=== PATIENT | male | born 1980 | race Caucasian/White ===

== ENCOUNTER 2021-10-20 12:44 | Emergency (ER) | payer OTHER, SELFPAY ==
[2021-10-20 12:56] VITALS: BP 130/83; PULSE 107; RESP 16; TEMP 36.8; O2SAT 98; BMI 23.7
--- NOTE | 2021-10-20 13:14 | XRR_ITS ---
PROCEDURE INFORMATION: Exam: XR Chest Exam date and time: 10/20/2021 12:19 PM Age: 41 years old Clinical indication: Pain; Chest pressure; Additional info: Chest pain TECHNIQUE: Imaging protocol: XR of the chest. Views: 1 view. COMPARISON: No relevant prior studies available. FINDINGS: Lungs: Unremarkable. No consolidation. Pleural spaces: Unremarkable. No pleural effusion. No pneumothorax. Heart/Mediastinum: Unremarkable. No cardiomegaly. Bones/joints: Unremarkable. XR/XR chest 1V portable [id number] IMPRESSION: No acute findings.
--- NOTE | 2021-10-20 13:15 | W.ED.CHESTPA ---
HPI - Chest Pain General: Chief Complaint: Chest Pain Stated Complaint: Chest Pains HBP Time Seen by Provider: 10/20/21 13:05 Source: patient and family Mode of arrival: ambulatory Limitations: no limitations History of Present Illness: This patient presented to our emergency department by private vehicle. He states he is here because of chest pain concerns. He states he was in this emergency department last evening accompanying his stepson and developed some chest pain which seem to be central in location and achy in nature sometimes pressure and squeezing. He states that he thought it would go away as a did not seek care at that time. He states the pain has persisted and is still present. He states it feels squeezing like and does radiate into both arms and sometimes into the center of his back. He denies it to be ripping or tearing in nature. He is not a tobacco user. He denies any cough fever etc. He is right-handed. He states that he occasionally has soreness from job-related activities but it never has lasted this long. He did have 2 bouts of emesis this morning upon awakening. He does not have any history of gastric ulcer disease or reflux disease. He does not drink alcohol. He has no other significant risk factors. He denies any history of thromboembolic events. He is not had COVID-19 nor is he immunized. No one else is ill in his home currently. MD complaint: chest pain Timing of current episode: constant Pain location: substernal Pain radiation: right arm, left arm and back Quality: tightness and dull Relieving factors: nothing Exacerbating factors: nothing Associated symptoms: Reports nausea and vomiting; Deny abdominal pain, dyspnea, fever(s), palpitations or syncope Risk Factors: Coronary artery disease risk factors: none Thoracic aortic dissection risk factors: none Review of Systems Const: Denies: fever(s), chills, body aches or change in appetite Eyes: Denies: change in vision ENMT: Denies: throat pain, odynophagia, change in hearing or nasal congestion Card: Denies: palpitations, syncope or pre-syncope Resp: Denies: dyspnea, productive cough or non-productive cough GI: Reports: nausea and vomiting; Denies: abdominal pain, hematemesis, coffee ground emesis, change in stool character, hematochezia or melena : Denies: flank pain, difficulty urinating, dysuria or urinary urgency Musc: Denies: neck pain, joint pain, joint swelling or joint warmth Skin/Breast: Denies: rash, pruritus or erythema Neuro: Denies: headache(s), numbness in extremities, weakness in extremities or sensory changes Psych: Denies: anxiety Endo: Denies: polyuria or polydipsia Chay/Lymph: Denies: easy bruising or easy bleeding All/Imm: Denies: urticaria PFSH ED PFSH: Social History Smoking and tobacco status: never smoked Alcohol intake: current Alcohol intake frequency: few times a month Physical Exam Narrative: EXAM NARRATIVE: Patient is a normal body habitus. He is alert in no acute distress. He makes good eye contact and speech is goal-directed. Const: COMMON NORMALS: no acute distress, average body habitus and patient oriented x3 GENERAL APPEARANCE: cooperative and comfortable HENMT: COMMON NORMALS: normocephalic, external ears normal, Normal nasal mucous membranes and turbinates present, moist oral mucous membranes and oropharynx normal HEAD & SCALP: normocephalic NOSE: Normal nasal mucous membranes and turbinates present EXTERNAL EAR: Yes external ears normal Eye: COMMON NORMALS: Equal, round and reactive pupils present, EOMs intact bilaterally and no scleral icterus PUPIL: Yes Equal, round and reactive pupils present Neck/C-Spine: COMMON NORMALS: full ROM, no lymphadenopathy, no JVD, Thyroid normal and No carotid bruits THYROID: Thyroid normal Chest: COMMONS NORMALS: normal inspection of the chest CHEST: Yes other OTHER: Chest exam is remarkable for tenderness to palpation over the left upper lateral chest. Movement of either left or right arms does not change his symptoms. Rotation of his trunk does not change his symptoms. There is no ecchymosis, skin rashes etc. No crepitance. Resp: COMMON NORMALS: normal respiratory effort, No retractions, No use of accessory muscles and clear to auscultation bilaterally AUSCULTATION: clear to auscultation bilaterally Cardio: COMMON NORMALS: no JVD, regular rate, No gallops present (Cardio) and No murmurs present (Cardio) RATE: regular rate and tachycardic GI: COMMON NORMALS: Normal to inspection, nondistended, normoactive bowel sounds present, Soft to palpation, non-tender and no masses PALPATION: Yes Soft to palpation : COMMON NORMALS: Yes no CVA tenderness BLADDER/KIDNEY EXAM: Yes no CVA tenderness Back/Pelvis: COMMON NORMALS: no CVA tenderness, thoracic and lumbar spine normal to inspection, no thoracic nor lumbar tenderness, thoraco-lumbar ROM normal and straight leg raise negative bilaterally Extremity: COMMON NORMALS: normal to inspection, full ROM, capillary refill normal, no joint enlargement, no clubbing, cyanosis or edema, no calf tenderness and no pedal edema Neuro: COMMON NORMALS: patient oriented x3, moves all extremities, no focal motor deficits and no sensory deficits noted Psych: COMMON NORMALS: mental status grossly normal, Normal thought process present and cooperative THOUGHT PROCESS: Normal thought process present Skin: COMMON NORMALS: no rashes or lesions noted and turgor normal GENERAL SKIN EXAM: no rashes or lesions noted and turgor normal Course Vital Signs: Vital signs: Vital Signs Temperature 98.3 F 10/20/21 12:56 Pulse Rate 97 10/20/21 15:22 Respiratory Rate 16 10/20/21 15:22 Blood Pressure 136/102 10/20/21 15:22 Pulse Oximetry 99 10/20/21 15:22 MDM - Chest Pain Medical Decision Making Patient with history of several hours of chest pain since last evening which on clinical examination suggest reproducibility was evaluated in the emergency department. His initial EKG was reassuring. Serial biomarkers were also reassuring. D-dimer was negative making low risk of thromboembolic event. He did have resting tachycardia but this trended down during his emergency department visit. When further investigated regarding his episode of vomiting this morning apparently he had episodes of pain when he was taking breaths which caused him to hyperventilate a bit which led to his vomiting episodes. He did not display any findings in the emergency department suggest a ongoing abdominal issue clinically. He had a soft nontender abdomen with reassuring laboratories etc. At this juncture he does not appear to have an ongoing emergency medical condition. Does have mild diastolic hypertension in the emergency department but this does not require any intervention at this time. I have cautioned both he and his spouse to monitor his blood pressure at home and record those numbers and should they remain elevated over the 140/90 range he should follow-up with his primary manager care management. We have also discussed avoiding salt etc. They both were comfortable with the plan of care and acknowledged our discussion. Stable for discharge with good return precautions discussed. Differential Diagnosis Unlikely acute massive pulmonary embolism or acute myocardial infarction Medical Records I reviewed the patient's medical records. Lab Data I reviewed the patient's lab results. : 10/20/21 13:12 10/20/21 13:12 Radiology Impressions Chest X-Ray 10/20/21 13:14 IMPRESSION: No acute findings. Laboratory Results WBC 11.3 10^3/uL (4.0-10.0) H 10/20/21 13:12 RBC 5.48 10^6/uL (4.1-5.3) H 10/20/21 13:12 Hgb 16.1 g/dL (11.7-16.6) 10/20/21 13:12 Hct 47.7 % (42.0-52.0) 10/20/21 13:12 MCV 87.0 fl (80-94) 10/20/21 13:12 MCH 29.4 pg (28.0-34.0) 10/20/21 13:12 MCHC 33.8 g/dL (30.0-36.0) 10/20/21 13:12 RDW 12.2 % (12.1-15.1) 10/20/21 13:12 Plt Count 211 10^3/cmm (130-400) 10/20/21 13:12 MPV 11.5 fL (7.4-10.4) H 10/20/21 13:12 Neut % (Auto) 89.6 % 10/20/21 13:12 Lymph % (Auto) 4.0 % 10/20/21 13:12 Mcclain % (Auto) 4.7 % 10/20/21 13:12 Eos % (Auto) 1.0 % 10/20/21 13:12 Baso % (Auto) 0.4 % 10/20/21 13:12 Neut # (Auto) 10.17 10^3/uL (1.8-7.7) H 10/20/21 13:12 Lymph # (Auto) 0.5 10^3/uL (0.8-4.8) L 10/20/21 13:12 Mcclain # (Auto) 0.5 10^3/uL (0.2-0.9) 10/20/21 13:12 Eos # (Auto) 0.1 10^3/uL (0.0-0.8) 10/20/21 13:12 Baso # (Auto) 0.0 10^3/uL (0.0-0.1) 10/20/21 13:12 Nucleated RBC % (auto) 0 % 10/20/21 13:12 Nucleated RBCs # 0.0 /100WBC 10/20/21 13:12 D-Dimer <= 0.27 ug/mIFEU (0-0.59) 10/20/21 13:12 Sodium 135 mmol/L (136-145) L 10/20/21 13:12 Potassium 4.5 mmol/L (3.5-5.1) 10/20/21 13:12 Chloride 104 mmol/L (98-107) 10/20/21 13:12 Carbon Dioxide 18 mmol/L (22-29) L 10/20/21 13:12 Anion Gap 17.5 (5-19) 10/20/21 13:12 BUN 15 mg/dL (6-20) 10/20/21 13:12 Creatinine 0.7 mg/dL (0.7-1.2) 10/20/21 13:12 GFR Calculation 123.7 mL/min (90-130) 10/20/21 13:12 Glucose 97 mg/dL (65-115) 10/20/21 13:12 Calculated Osmolality 281 mOsm/kg (285-295) L 10/20/21 13:12 Calcium 9.1 mg/dL (8.5-10.5) 10/20/21 13:12 Total Bilirubin 1.0 mg/dL (0.15-1.2) 10/20/21 13:12 AST 20 U/L (0-40) 10/20/21 13:12 ALT 19 U/L (0-41) 10/20/21 13:12 Alkaline Phosphatase 75 IU/L (40-130) 10/20/21 13:12 Troponin T Baseline 6 ng/L (0-15) 10/20/21 13:12 Troponin T 120 Minute 6.00 ng/L (0-15) 10/20/21 14:43 Total Protein 7.2 g/dL (6.6-8.7) 10/20/21 13:12 Albumin 4.6 g/dL (3.5-5.2) 10/20/21 13:12 Globulin 2.6 g/dL (1.3-4.6) 10/20/21 13:12 EKG Data EKG 1: EKG interpretation time: 13:05 Interpretation: Review of his resting EKG reveals sinus tachycardia 120 bpm. Intervals normal axis. He has nonspecific ST-T wave inversion in limb lead III. Otherwise no notable ST-T wave changes. No prior tracings available. Discharge Plan Discharge Patient Disposition: Home Clinical Impression: Chest pain, Chest pain, musculoskeletal Condition: Stable Prescriptions: No Action No Known Home Medications 0RF Discharge Orders: Discharge ED (Routine); Ordered 10/20/21 Ordered By: Rocky Mixon [facility] [[facility] Care [facility]] - Discharge Diet: Low Salt Discharge Activity: Resume usual activity and Increase activity as tolerated Patient Instructions: Opioid Safety Activity Restrictions/Additional Instructions: Monitor your blood pressure after you have been sitting for approximately 5 minutes once or twice daily and record those numbers for the next 2 weeks. If your blood pressure remains continuously greater than 140/90 range follow-up with your primary manager care management for further discussion and evaluation and potential treatment. Should you develop any new persistent or worsening symptoms as we discussed return to this or the nearest emergency department immediately. Coding Level of Care Code ED [employer] Lay Up Worker for Darrell Vidal Exam Comprehensive
[2021-10-20] MEDS: aspirin 81 mg Chew Tablet 324 MG PO (13:24)
--- NOTE | 2021-10-20 13:24 | PC.NURSE ---
PT PLACED ON CONTINUOUS SPO2, NIBP, AND CM.
[2021-10-20 13:31] VITALS: BP 141/101; PULSE 104; RESP 20; O2SAT 99
[2021-10-20 13:38] LABS: Basophils % 0.4 %; Eosinophils # 0.1 10^3/uL (0.0-0.8); Hematocrit 47.7 % (42.0-52.0); Hemoglobin 16.1 g/dL (11.7-16.6); Lymphocytes # 0.5 10^3/uL (0.8-4.8); Mean Corpuscular HGB Conc 33.8 g/dL (30.0-36.0); Mean Corpuscular Hemoglobin 29.4 pg (28.0-34.0); Mean Platelet Volume 11.5 fL (7.4-10.4); Monocytes # 0.5 10^3/uL (0.2-0.9); Monocytes % 4.7 %; Neutrophils # 10.17 10^3/uL (1.8-7.7); Neutrophils % 89.6 %; Nucleated Red Blood Cells % 0 %; Platelet Count 211 10^3/cmm (130-400); Red Blood Count 5.48 10^6/uL (4.1-5.3); Red Cell Distribution Width 12.2 % (12.1-15.1); White Blood Count 11.3 10^3/uL (4.0-10.0)
[2021-10-20 13:45] VITALS: BP 141/101; PULSE 99; RESP 18; O2SAT 97
[2021-10-20 13:54] LABS: D Dimer <= 0.27 ug/mIFEU (0-0.59)
[2021-10-20 14:23] LABS: Troponin(5th) Baseline 6 ng/L (0-15)
[2021-10-20 14:33] VITALS: BP 140/101; PULSE 104; RESP 16; O2SAT 96
[2021-10-20 14:52] LABS: Alanine Aminotransferase 19 U/L (0-41); Albumin Level 4.6 g/dL (3.5-5.2); Alkaline Phosphatase 75 IU/L (40-130); Aspartate Amino Transferase 20 U/L (0-40); Blood Urea Nitrogen 15 mg/dL (6-20); Calcium 9.1 mg/dL (8.5-10.5); Carbon Dioxide 18 mmol/L (22-29); Chloride 104 mmol/L (98-107); Creatinine Clr Calc Pharmacy 152.2726; Globulin 2.6 g/dL (1.3-4.6); Glomerular Filtration Rate 123.7 mL/min (90-130); Glucose 97 mg/dL (65-115); Osmolality Calculated 281 mOsm/kg (285-295); Sodium 135 mmol/L (136-145); Total Protein 7.2 g/dL (6.6-8.7)
[2021-10-20 14:55] LABS: Anion Gap 17.5 (5-19); Potassium 4.5 mmol/L (3.5-5.1)
[2021-10-20] MEDS: sodium chloride 0.9% 1,000 ML 999 ML IV (15:20)
[2021-10-20 15:22] VITALS: BP 136/102; PULSE 97; RESP 16; O2SAT 99
[2021-10-20 15:58] LABS: Troponin 5 2HR Delta 0 ABS# (0-10)
[2021-10-20 16:10] VITALS: BP 136/102; PULSE 98; RESP 19; O2SAT 98
--- NOTE | 2021-10-20 19:14 | ECG_ITS ---
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 Measurements Intervals [place] Rate: 120 P: 55 NH: 131 QRS: 46 QRSD: 85 T: 9 QT: 284 QTc: 402 Interpretive Statements SINUS TACHYCARDIA NONSPECIFIC T-WAVE ABNORMALITY ABNORMAL RHYTHM ECG No previous ECG available for comparison Electronically Signed On 10-21-2021 17:43:45 CDT by Augusta Sal M.D. [id number]
== END 2021-10-20 16:11 | disposition home or self-care (01) ==
PROVIDERS: Emergency Provider Emergency Medicine
DX: R07.9 Chest pain, unspecified (principal)
CPT/HCPCS: 71045; 80053; 84484; 85025; 85378; 93005; 96360; 99284; J7030

== ENCOUNTER 2022-08-27 17:00 | Outpatient (CLI) | payer OTHER, SELFPAY | END 2022-08-27 17:01 | disposition home or self-care (01) | LOC: SLEEP 08-29 17:02 | PROVIDERS: Visit Provider Family Medicine | DX: G47.10 Hypersomnia, unspecified (principal); R53.83 Other fatigue; R06.83 Snoring; G47.33 Obstructive sleep apnea (adult) (pediatric) | CPT/HCPCS: G0399 ==

== ENCOUNTER 2022-12-11 18:49 | Emergency (ER) | payer SELFPAY ==
--- NOTE | 2022-12-11 18:57 | XRR_ITS ---
PROCEDURE INFORMATION: Exam: XR Left Ankle Exam date and time: 12/11/2022 7:05 PM Age: 42 years old Clinical indication: Pain; Ankle; Left TECHNIQUE: Imaging protocol: Radiologic exam of the left ankle. Views: 3 or more views. COMPARISON: No relevant prior studies available. FINDINGS: Bones/joints: Punctate calcified heel spur. Soft tissues: Normal. XR/XR ankle LT min 3V* [id number] IMPRESSION: 1. No acute findings. 2. Punctate calcified heel spur.
[2022-12-11 19:20] VITALS: PULSE 76; RESP 14; TEMP 36.4; O2SAT 98
[2022-12-11 19:23] VITALS: BP 136/95
--- NOTE | 2022-12-11 19:36 | ED_ITS ---
HPI - Extremity Problem General: Chief complaint: Extremity Problem,Nontraumatic Stated complaint: Left Ankle Pain Time Seen by Provider: 12/11/22 19:32 History of Present Illness: 42-year-old male patient comes in today with left ankle pain and discomfort. Patient reports of been going on for about 2 weeks. Patient did feel a pop when he rolled over off the couch about 2 weeks ago and since then he has had increased pain and some mild swelling to the ankle. No redness or fever is noted. Patient appears nontoxic. Patient reports no prior injury to her ankle. Associated symptoms: Deny rash Review of Systems General: Reports: 10 or more systems reviewed and unremarkable except in HPI and below ENMT: Denies: throat pain Resp: Denies: dyspnea GI: Denies: abdominal pain Musc: Reports: joint pain Skin/Breast: Denies: rash PFSH ED PFSH: Social History Smoking and tobacco status: never smoked Alcohol intake: current Alcohol intake frequency: few times a month Substance/Drug Use: never Physical Exam Const: COMMON NORMALS: alert HENMT: COMMON NORMALS: normocephalic HEAD & SCALP: normocephalic Neck/C-Spine: COMMON NORMALS: full ROM Resp: COMMON NORMALS: normal respiratory effort and clear to auscultation bilaterally AUSCULTATION: clear to auscultation bilaterally Cardio: COMMON NORMALS: regular rate RATE: regular rate Back/Pelvis: COMMON NORMALS: thoracic and lumbar spine normal to inspection Extremity: LEFT LOWER EXTREMITY: Yes ankle joint (Posterior ankle tenderness with mild swelling.) Left ankle: Yes inspection, Yes palpation and Yes ROM Neuro: SENSORIUM/ORIENTATION: Yes alert Skin: COMMON NORMALS: turgor normal GENERAL SKIN EXAM: turgor normal Course Vital Signs: Vital signs: Vital Signs Temperature 97.6 F 12/11/22 19:20 Pulse Rate 76 12/11/22 19:20 Respiratory Rate 14 12/11/22 19:20 Blood Pressure 136/95 12/11/22 19:23 Pulse Oximetry 98 12/11/22 19:20 Oxygen Delivery Me thod Room Air 12/11/22 19:20 MDM - Extremity (Nontraumatic) Medical Decision Making Patient comes in today with persistent pain and discomfort to the left ankle. On exam the ankle has some posterior tenderness and mild swelling. Pulses and sensation are intact. Differential diagnosis includes but not limited to fracture, sprain, tendinitis, bursitis. X-ray noted some heel spurring but otherwise unremarkable x-ray. Exam noted no obvious abnormalities. Patient probably has some tendinitis or arthritis in the ankle that is aggravated. We will go ahead and treat with a burst of steroids and recommend follow-up with podiatry. Patient reported understanding and agreed to plan. Lab Data Radiology Impressions Ankle X-Ray 12/11/22 18:57 IMPRESSION: 1. No acute findings. 2. Punctate calcified heel spur. Discharge Plan Discharge Patient Disposition: Home Clinical Impression: Arthralgia of ankle or foot, left Condition: Stable Prescriptions: New prednisone 20 mg tablet 20 mg PO BID 5 Days Qty: 10 0RF Discharge Orders: Discharge ED (Routine); Ordered 12/11/22 Ordered By: Daron Freitas Discharge Diet: Usual diet Discharge Activity: Increase activity as tolerated Patient Instructions: Arthralgia (ED) Activity Restrictions/Additional Instructions: Activity as tolerated. Continue with acetaminophen and/or ibuprofen for pain. Use prednisone 20 mg twice a day for next 5 days. reservoir engineering manager will contact you regarding follow-up appointment with foot and ankle surgeon. Return to emergency department for new concerns. Coding Level of Care Code ED Vat House Laborer for Darrell Vidal
[2022-12-11] MEDS: predniSONE 20 mg Tablet 60 MG PO (19:46)
--- NOTE | 2022-12-12 08:26 | DCPLANNER ---
Addendum entered by Effie Leo 12/22/22 08:13: Patient had a follow up appointment scheduled with ortho - patient did attend appointment. Addendum entered by Effie Leo 12/18/22 11:27: Patient has a follow up appointment scheduled for Tuesday, December 20, 2022 at 9:[address] Morillo at ortho. Original Note: retail manager in training had message to schedule a follow up appointment for patient with podiatry. retail manager in training sent patients information to the front office staff at podiatry. Patients information will be printed and reviewed. Clinic will call patient with appointment information.
--- NOTE | 2022-12-20 07:33 | DCPLANNER ---
TCM called patient due to no primary care physician - no answer at this time.
== END 2022-12-11 19:46 | disposition home or self-care (01) ==
PROVIDERS: Emergency Provider Nurse Practitioner Family
DX: M25.572 Pain in left ankle and joints of left foot (principal)
CPT/HCPCS: 73610; J7512

== ENCOUNTER 2023-01-15 15:48 | Outpatient (CLI) | payer SELFPAY ==
--- NOTE | 2023-01-15 16:00 | MR_ITS ---
WS: [id number] EXAMINATION: MR ankle LT wo con* [id number] ORDER DATE: 01/15/2023 4:00 PM COMPARISON: HISTORY: Left ankle pain and instability CONTRAST: None. TECHNIQUE: Axial proton density fat sat, axial T1, sagittal proton density, sagittal STIR, coronal T2 fat sat, and coronal T1 sequences performed. After contrast, axial T1 fat sat, coronal T1 fat sat, and sagittal T1 fat sat were performed. FINDINGS: Palpable marker overlying the lateral malleolus. No acute avulsion fractures lateral malleo haris. No acute medial malleolar avulsion fractures. Degenerative arthritis the ankle mortise. Normal t ibial plafond. Normal talar dome Small ankle effusion. Fluid and edema along the anterolateral gutter. Laxity within the ATFL consiste nt with high-grade or complete tear. Fluid and edema involving the PTFL suspicious for partial intras ubstance tear. Tenosynovitis along the peroneal tendon sheaths. Partial tear involving the peroneal b yair along the lateral ankle just inferior to the palpable marker. Injury of partial tear involving the calcaneofibular ligament with irregularity distally at the calca laurel insertion. Associated fluid and edema. Distal Achilles is intact. Tenosynovitis along the tibialis posterior, flexor digitorum and hallucis longus. Normal extensor compartment tendons. Normal plantar aponeurosis. Tiny plantar calcaneal spur. Degenerative arthritis at the talocalcaneal articulation and talonavicular reticulation. Degenerativ e arthritis involving the TMT joints. MR/MR ankle LT wo con* [id number] IMPRESSION: 1. Palpable marker overlying the lateral malleolus. No acute avulsion fracture s lateral malleolus. 2. Partial tear involving the adjacent peroneal brevis with increased signal a bnormality. Tenosynovitis peroneal tendon sheath. 3. Soft tissue edema with ankle effusion. Fluid in the anterolateral gutter wi th high-grade tear of the ATFL. 4. Partial tear of the PTFL with intrasubstance signal abnormality. 5. Fluid and edema along the calcaneal fibular ligament with injury and partia l tear at the calcaneal insertion. 6. Moderate degenerative arthritis ankle mortise. 7. Pes planus.
== END 2023-01-15 15:49 | disposition home or self-care (01) ==
PROVIDERS: PCP Podiatrist Foot & Ankle Surgery; Visit Provider Podiatrist Foot & Ankle Surgery
DX: M25.372 Other instability, left ankle (principal); M65.872 Other synovitis and tenosynovitis, left ankle and foot; S86.312A Strain of muscle(s) and tendon(s) of peroneal muscle group at lower leg level, left leg, initial encounter; S93.492A Sprain of other ligament of left ankle, initial encounter; X58.XXXA Exposure to other specified factors, initial encounter; M19.072 Primary osteoarthritis, left ankle and foot; M21.42 Flat foot [pes planus] (acquired), left foot
CPT/HCPCS: 73721

== ENCOUNTER → 2024-11-15 14:31 | Outpatient (BNVA) | payer OTHER, SELFPAY | PROVIDERS: PCP Podiatrist Foot & Ankle Surgery; Referring Provider Family Medicine; Visit Provider Specialist | DX: M25.522 Pain in left elbow (principal); G56.22 Lesion of ulnar nerve, left upper limb | CPT/HCPCS: 73080 ==